=== PATIENT | female | born 1965 | race Caucasian/White ===

== ENCOUNTER → 2019-03-07 13:57 | Outpatient (CLI) | payer OTHER, SELFPAY | PROVIDERS: Visit Provider Family Medicine | DX: M85.852 Other specified disorders of bone density and structure, left thigh (principal); Z78.0 Asymptomatic menopausal state; Z82.62 Family history of osteoporosis; Z87.891 Personal history of nicotine dependence | CPT/HCPCS: 77080 ==

== ENCOUNTER → 2024-03-02 13:36 | Outpatient (CLI) | payer OTHER, SELFPAY ==
--- NOTE | 2024-03-02 | DI.NM.S_ITS ---
PROCEDURE: NM EXERCISE TREADMILL NON NUC COMPARISON: None. INDICATIONS: Chest pain, unspecified FINDINGS: The patient exercised for 7 minutes and 9 seconds reaching 95% of maximum predicted heart rate (10.1 Mets, IVORY +19%). Appropriate BP response to exercise. No angina and no ectopy during exercise or recovery. Mild horizontal ST depressions in the anterolateral leads during recovery. IMPRESSION: Abnormal treadmill ECG only stress test given mild horizontal ST depressions in the anterolateral leads during recovery. No angina during the study. Mildly reduced exercise capacity (IVORY +19%). Recommend exercise stress test with imaging (example exercise stress echo) for further assessment. Dictated by: Susana Johnson MD on 03/02/2024 at 16:38 Approved by: Susana Johnson MD on 03/02/2024 at 16:43
--- NOTE | 2024-03-02 | DI.ECHO.S_ITS ---
[place] : : [id number] : : [place] : : [id number] : : Phone: [phone] Echocardiogram Report + + :Name: ANDRES MARQUIS Study Date: 03/02/2024 Height: 64 in : :[facility] ReadingLocation: Weight: 210 lb : : Gender: Female BSA: 2.0 m2 : :: 1965 Age: 58 yrs BP: 142/87 mmHg: :Reason For Study: CHEST PAIN : :Ordering Physician: JANIE, : :JOLLY Lundberg Performed By: Kahlil Ferrer : :Referring: JOLLY MCKNIGHT : + + Interpretation Summary The ejection fraction is estimated to be 60-65%. Diastolic function could not be accurately assessed due to contradictory data. The right ventricle is normal in size and function. There is mild tricuspid regurgitation. The right ventricular systolic pressure is estimated to be at least 37 mmHg based on an estimated right atrial pressure of 3 mm Hg. Procedure: A two-dimensional transthoracic echocardiogram with color flow and Doppler was performed. The study quality was technically good. There is no prior echocardiogram noted for this patient. The patient was in normal sinus rhythm during the exam. Left Ventricle: The left ventricle is normal in size. There is normal left ventricular wall thickness. There is no ventricular septal defect visualized. The ejection fraction is estimated to be 60-65%. There are no focal wall motion abnormalities. Diastolic function could not be accurately assessed due to contradictory data. Right Ventricle: The right ventricle is normal in size and function. Atria: The left atrial size is normal. Right atrial size is normal. There is no Doppler evidence for an interatrial shunt. Mitral Valve: The mitral valve is normal in structure and function. There is trace mitral regurgitation. Aortic Valve: The aortic valve is trileaflet. The aortic valve opens well. There is no aortic valve stenosis. No aortic regurgitation is present. Tricuspid Valve: The tricuspid valve is normal in structure and function. There is mild tricuspid regurgitation. The right ventricular systolic pressure is estimated to be at least 37 mmHg based on an estimated right atrial pressure of 3 mm Hg. Pulmonic Valve: The pulmonic valve is normal in structure and function. There is no pulmonic valvular regurgitation. Great Vessels: The aortic root is normal size. The dimensions of the ascending aorta are normal. The pulmonary artery is normal size. The IVC is of normal diameter and collapses greater than 50% with a sniff. This suggests a low right atrial pressure of 3 mm Hg. Pericardium/ Pleura There is no pericardial effusion. There is no pleural effusion. MMode/2D Measurements & Calculations LVIDd: 4.7 cm LVOT diam: 1.9 cm LVIDs: 2.4 cm Ao root diam: 3.0 cm FS: 48.5 % asc Aorta Diam: 2.9 cm EPSS: 0.55 cm IVSd: 0.99 cm LVPWd: 0.89 cm LV pinto. diameter/BSA (cm/m^2): 2.4 LV sys. diameter/BSA (cm/m^2): 1.2 LA A2 area: 16.6 cm2 RA long axis: 5.1 cm LA A4 area: 20.3 cm2 RA area: 15.5 cm2 LA length (vol): 5.7 cm RA vol: 40.5 ml LA vol: 50.3 ml RA : 20.3 ml/m2 LA vol index: 25.2 ml/m2 IVC diam: 1.2 cm RVD1 (basal): 3.6 cm RVD2 (mid): 2.9 cm TAPSE: 3.2 cm Doppler Measurements & Calculations Ao V2 max: 171.6 cm/sec LVOT Max Moose: 133.4 cm/sec Ao V2 mean: 116.7 cm/sec LV V1 max P.1 mmHg Ao max P.8 mmHg LV V1 VTI: 31.8 cm Ao mean P.3 mmHg LINDA(I,D): 2.3 cm2 Ao V2 VTI: 38.6 cm LINDA(V,D): 2.2 cm2 sev ratio: 0.82 LINDA indexed to BSA (cm^2/m^2): 1.2 MV E max moose: 92.9 cm/sec TR max moose: 293.6 cm/sec MV A max moose: 79.6 cm/sec TR max P.5 mmHg MV E/A: 1.2 PA V2 max: 88.5 cm/sec Med Peak E' Moose: 6.8 cm/sec PA V2 mean: 64.3 cm/sec E/E' med: 13.7 PA mean P.8 mmHg Lat Peak E' Moose: 8.4 cm/sec PA pr(Accel): 36.2 mmHg E/E' lat: 11.0 E/e' average: 12.4 MV dec time: 0.22 sec SVLVOT): 90.8 ml Reading Physician:05:01 PM
== END ==
PROVIDERS: Referring Provider Internal Medicine Cardiovascular Disease; Visit Provider Internal Medicine Cardiovascular Disease
DX: I07.1 Rheumatic tricuspid insufficiency (principal); R07.9 Chest pain, unspecified; R94.39 Abnormal result of other cardiovascular function study
CPT/HCPCS: 93017; 93306